=== PATIENT | male | born 2000 | race Caucasian/White ===

== ENCOUNTER 2022-09-29 20:34 | Emergency (ER) | payer OTHER ==
[~2022-09-29] VITALS: Ht 162.6 cm; Wt 83.0 kg
[2022-09-29 20:59] VITALS: BP 145/90; PULSE 65; RESP 17; TEMP 97.8; O2SAT 99
--- NOTE | 2022-09-29 21:02 | NUR ---
TO LOBBY A/W BED AMBULATORY
--- NOTE | 2022-09-29 22:07 | NUR ---
PT TAKEN TO ER CHAIR
[2022-09-29] MEDS ORDERED: AMOX500C25 PO (22:56)
[2022-09-29] MEDS ORDERED: COROTSOL BOTH EARS (22:56)
--- NOTE | 2022-09-29 23:05 | NUR ---
Patient discharged. Written and verbal after care instructions given and explained. Patient alert, oriented and verbalized understanding of instructions. Ambulatory with steady gait. All questions addressed prior to discharge. ID band removed. Patient advised to follow up with PMD. Rx of Amoxicillin and Cortisporin Otic Solution given. Patient educated on indication of medication including possible reaction and side effects. Opportunity to ask questions provided and answered.
== END 2022-09-29 23:05 | disposition home or self-care (01) ==
LOC: MED 20:34
DX: H66.91 Otitis media, unspecified, right ear (principal); H60.91 Unspecified otitis externa, right ear; Z79.899 Other long term (current) drug therapy; Z79.2 Long term (current) use of antibiotics
CPT/HCPCS: 99283